=== PATIENT | female | born 1965 | race Caucasian/White ===

== ENCOUNTER → 2018-08-14 06:25 | Outpatient (CLI) | payer OTHER, SELFPAY ==
--- NOTE | 2018-08-14 06:27 | CA_ITS ---
PROCEDURE: 2-D M-mode and color Doppler study INDICATIONS FOR THE TEST: Chest pain + COPD Heart Murmur Tobacco Smoking+ Palpitations Fatigue Syncope Edema+ Hypertension Diabetes Mellitus Rheumatic Fever SOB ZAMUDIO Obesity Hyperlipidemia+ Family History HD+ Additional History PATIENT INFORMATION HEIGHT: 61 WEIGHT:161 GENDER: Female B/P:143/75 2-D/M-MODE INTERPRETATION: 2-D MEASUREMENTS OBSERVED VALUES IN CMS Right Ventricular Dimension (RVDd) 2.1 Interventricular Septum (Thickness)(IVsd) 1.0 Left Ventricular Internal Dimensions(LVIDd) 4.8 Left Ventricular Posterior Wall (Thickness)(LVPWd) 0.8 Aortic Root 2.6 Aortic Cusp Separation 1.7 Left Atrial Dimensions (LAD) 3.0 2D 1. Left atrium is normal size, left ventricle is normal size, there is no concentric left ventricular hypertrophy, visually estimated ejection fraction 55% with no regional wall motion abnormality. 2. The right atrium and right ventricle is normal normal size and contractility. 3. The aortic valve is minimally thickened and fibrosed. 4. The mitral and tricuspid valvular grossly normal. 5. The pulmonic valve is poorly visualized. 6. No significant pericardial effusion noted. DOPPLER INTERROGATION: Doppler interrogation of the aortic, mitral and tricuspid valvular presence of mild mitral and tricuspid regurgitation, tricuspid regurgitation jet velocity is inadequate for calculation of the right ventricular systolic pressure, diastolic parameters are within normal range. CONCLUSION: 1. Normal left ventricular size, visually estimated ejection fraction of 55% with no regional wall motion abnormality, diastolic parameters are within normal range. 2. Mild mitral and tricuspid regurgitation 3. No significant pericardial effusion noted.
--- NOTE | 2018-08-14 06:27 | NM_ITS ---
History and Indications: Hyperlipidemia, chronic tobacco use, family history, chest pain, shortness of breath and palpitations Procedure: Patient received a 0.4 mg of intravenous Lexiscan, resting heart rate was 74 bpm resting blood pressure 140/75, with Lexiscan maximum heart rate achieved was 123 bpm which is less than 85% of the maximum predicted heart rate and a blood pressure was 160/84. With Lexiscan patient complained of shortness of breath. Electrocardiogram: Resting electrocardiogram showed sinus rhythm rightward axis, with Lexiscan there is less than 1.[address] segment depression noted from the baseline EKG. The EKG portion of the Lexiscan Myoview is nondiagnostic. Cardiac stress and resting SPECT images: Cardiac stress and resting SPECT images were obtained using technetium 99 Myoview 32.5 mCi stress and 9.7 mCi at rest. Gated SPECT further analysis of segmental wall motion and calculation of the ejection fraction also done. Cardiac stress and rest SPECT images show a fall myocardial activity without segmental perfusion abnormality, computer derived ejection fraction is over 65% with no regional wall motion abnormality, right ventricle is normal size and contractility. Conclusion: 1. The EKG portion of the Lexiscan Myoview is nondiagnostic. 2. No scintigraphic evidence of reversible ischemia seen, computer derived ejection fraction is 65% with no regional wall motion abnormality, right ventricle is normal size and contractility. 3. Normal Lexiscan Myoview study.
--- NOTE | 2018-08-14 11:07 | HMH.ITSHM ---
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 [lipator omeprazole ]
== END ==
PROVIDERS: PCP Physician Assistant; Visit Provider Internal Medicine
DX: R07.9 Chest pain, unspecified (principal); R06.09 Other forms of dyspnea; E78.5 Hyperlipidemia, unspecified; R60.9 Edema, unspecified; R94.31 Abnormal electrocardiogram [ECG] [EKG]; Z82.49 Family history of ischemic heart disease and other diseases of the circulatory system; F17.200 Nicotine dependence, unspecified, uncomplicated
CPT/HCPCS: 78452; 93017; 93306; 94060; 94640; 94726; 94729; A9502; J2785

== ENCOUNTER → 2018-08-18 09:02 | Outpatient (CLI) | payer OTHER, SELFPAY ==
--- NOTE | 2018-08-18 09:05 | XR_ITS ---
XR chest 2V HISTORY: Cough, COPD, asthma, smoker, history of lung cancer ITS.REASON: tobacco dependence ORDERING PHYSICIAN: Luis Alfredo Ragsdale MD PATIENT AGE: 52 years COMPARISON: None FINDINGS: The heart size is unremarkable. There is evidence of old granulomatous disease. No evidence of CHF. There is increased density in the right pericardial region which is felt to be due to a pericardial fat pad. However, there is a transverse density at this area with a fairly sharp margin suggesting an air-fluid level. This Meylan be due to some patient artifact. CT may confirm. The remaining lungs are clear. No acute bony anomalies. IMPRESSION: 1. Questionable air-fluid level versus some aeration artifact in the right pericardial region overlying a pericardial fat pad. CT may be of further value to ensure this does not represent an air-fluid level. This could be performed without contrast 2. Otherwise negative chest
== END ==
PROVIDERS: PCP Physician Assistant; Visit Provider Internal Medicine
DX: F17.200 Nicotine dependence, unspecified, uncomplicated (principal)
CPT/HCPCS: 71046

== ENCOUNTER → 2020-03-07 10:52 | Outpatient (CLI) | payer OTHER, SELFPAY ==
[2020-03-07 11:30] LABS: Basophils # 0.1 K/mm3 (0-0.2); Basophils % 0.8 % (0.1-2.0); Eosinophils # 0.2 K/mm3 (0.0-0.4); Eosinophils % 2.1 % (0.1-12.0); Hematocrit 41.1 % (37.0-47.0); Hemoglobin 14.2 g/dL (12.2-16.2); Lymphocytes # 2.6 K/mm3 (0.7-4.5); Lymphocytes % 30.8 % (10-50); Mean Corpuscular HGB Conc 34.7 g/dL (31.8-35.4); Mean Corpuscular Hemoglobin 29.5 pg (27.0-31.2); Mean Corpuscular Volume 84.9 fl (81-99); Monocytes # 0.4 K/mm3 (0.1-1.0); Monocytes % 4.7 % (1.7-9.3); Neutrophils # 5.1 K/mm3 (1.8-7.8); Neutrophils % 61.6 % (37.0-80.0); Platelet Count 270 K/mm3 (142-424); Red Blood Count 4.83 M/mm3 (4.20-5.40); Red Cell Distribution Width 14.6 % (11.5-17.5); White Blood Count 8.4 K/mm3 (4.8-10.8)
[2020-03-07 12:28] LABS: Chloride 107 mmol/L (98-107); Potassium 5.2 mmoL/L (3.5-5.1); Sodium 140 mmol/L (136-145)
[2020-03-07 12:31] LABS: Blood Urea Nitrogen 12 mg/dl (7-17); Estimated Glomerular Filt Rate 88 ml/min (>60); GFR (African American) 106 ML/MIN (>60)
[2020-03-07 12:32] LABS: Anion Gap 9.2 mEq/L (5-15); Calcium 9.4 mg/dl (8.4-10.2); Carbon Dioxide 29 mmol/L (22.0-30.0); Glucose 91 mg/dl (74-100)
== END ==
PROVIDERS: Visit Provider Urology
DX: E07.9 Disorder of thyroid, unspecified (principal); E87.6 Hypokalemia; I10 Essential (primary) hypertension; R00.2 Palpitations
CPT/HCPCS: 36415; 80048; 85025

== ENCOUNTER → 2020-03-09 12:57 | Outpatient (CLI) | payer OTHER, SELFPAY | PROVIDERS: PCP Physician Assistant; Visit Provider Urology | DX: R00.2 Palpitations (principal); I10 Essential (primary) hypertension; E07.9 Disorder of thyroid, unspecified; E87.6 Hypokalemia | CPT/HCPCS: 93306 ==

== ENCOUNTER → 2020-05-10 15:23 | Outpatient (CLI) | payer OTHER, SELFPAY ==
[2020-05-10 15:42] LABS: Basophils # 0.1 K/mm3 (0-0.2); Eosinophils # 0.3 K/mm3 (0.0-0.4); Eosinophils % 2.8 % (0.1-12.0); Hematocrit 40.1 % (37.0-47.0); Hemoglobin 13.5 g/dL (12.2-16.2); Lymphocytes # 3.1 K/mm3 (0.7-4.5); Lymphocytes % 34.9 % (10-50); Mean Corpuscular HGB Conc 33.7 g/dL (31.8-35.4); Mean Corpuscular Hemoglobin 29.6 pg (27.0-31.2); Mean Corpuscular Volume 87.9 fl (81-99); Monocytes # 0.5 K/mm3 (0.1-1.0); Monocytes % 5.1 % (1.7-9.3); Neutrophils % 56.3 % (37.0-80.0); Platelet Count 276 K/mm3 (142-424); Red Blood Count 4.56 M/mm3 (4.20-5.40); Red Cell Distribution Width 14.7 % (11.5-17.5); White Blood Count 8.9 K/mm3 (4.8-10.8)
[2020-05-10 16:17] LABS: Chloride 106 mmol/L (98-107); Sodium 142 mmol/L (136-145)
[2020-05-10 16:20] LABS: Blood Urea Nitrogen 10 mg/dl (7-17); Calcium 9.5 mg/dl (8.4-10.2); Carbon Dioxide 27 mmol/L (22.0-30.0); Estimated Glomerular Filt Rate 88 ml/min (>60); GFR (African American) 106 ML/MIN (>60); Glucose 113 mg/dl (74-100)
[2020-05-10 16:38] LABS: Free T4 (Free Thyroxine) 0.84 ng/dl (0.78-2.19)
[2020-05-10 16:52] LABS: Thyroid Stimulating Hormone 1.97 uIU/mL (0.465-4.68)
== END ==
PROVIDERS: Visit Provider Physician Assistant
DX: R00.2 Palpitations (principal)
CPT/HCPCS: 36415; 80048; 83735; 84439; 84443; 85025

== ENCOUNTER 2020-05-26 10:41 | Day surgery (SDC) | payer OTHER, SELFPAY ==
[2020-05-26] VITALS (20 sets, daily range): BP systolic 88–162; BP diastolic 58–83; PULSE 69–96; RESP 15–18; TEMP 36.6–36.9; O2SAT 92–99; BMI 22.8; BMI 31.0
--- NOTE | 2020-05-26 | IR_ITS ---
APPROVED REPORT Patient Location: [facility] Operator: JASMEET Sandra RT (R) PROCEDURES Left heart catheterization Left ventriculogram Selective coronary angiogram INDICATION Acute coronary syndrome, Numerous risk factors for coronary disease Informed consent was obtained prior to the procedure. COMPLICATIONS none Estimated Blood Loss: less than 10 mls TECHNIQUE One percent lidocaine used to anesthetize the right anterior aspect of the wrist. The right radial artery was accessed via the Seldinger technique. A 6 Polish sheath was placed in the right radial artery. 2.5 mg of verapamil, 800 mcg of nitroglycerin, 1mg Lidocaine and 5000 U Heparin were given through the arterial sheath. The trap catheter and 6 Polish JL 3 guide catheter were used to perform left heart catheterization, left ventriculogram and selective coronary angiogram. At the end of the procedure the sheath was removed good hemostasis was achieved using Traclet band, patient was transferred to the postop holding area in stable condition. ANGIOGRAPHIC RESULTS The left main artery Normal The left anterior descending artery has proximal 10 to 20% stenoses mid vessel 10 to 20% stenosis The circumflex artery Nondominant yet still large with mild 10 to 20% mid vessel stenosis The right coronary artery Large dominant normal The CLEARY ventriculogram reveals Normal 65% The left ventricular end-diastolic pressure 10 mmHg IMPRESSION Mild mgb-sbba-hninfiwr coronary disease Normal ejection fraction Normal left ventricular end-diastolic pressure PLAN 1. Risk factor modification 2. Evaluation of noncardiac chest pain Electronically signed by : Luis Alfredo Ragsdale, 05/26/2020 12:03:16
--- NOTE | 2020-05-26 10:39 | ECG_ITS ---
APPROVED REPORT Exam: Resting ECG HR:84 bpm ECG Measurements Heart Rate 84 AXES AK 142 P 69 QRSd 78 QRS 32 QT 358 T 21 QTc 423 <Conclusion> Normal sinus rhythm Normal ECG Electronically signed by : Brandon Sanchez, 05/27/2020 07:28:02
--- NOTE | 2020-05-26 10:44 | HMH.EDGENADL ---
ED Disposition Clinical Impression: Palpitations Chest pain Qualifiers: Chest pain type: precordial pain Qualified Code(s): R07.2 - Precordial pain Disposition: Still a Patient Condition on Discharge: Good - Critical Care Critical Care Time: No Attestation: On , the high probability of a clinically significant, sudden or life threatening deterioration of the following system(s) required my full and direct attention, intervention and personal management. The time I documented below is in addition to time spent performing reported procedures but includes the following listed in this critical care notation. Medical Decision Making - Medical Records Medical records reviewed: Yes: I reviewed the patient's medical records. MR Comment: [facility] for palpitations, hypoK with F/U cardio 03/07, 05/10 - cardio notes reviewed - Hung Inquiry Pt receiving controlled substance: No Vital Signs: 05/26/20 10:41 05/26/20 11:02 05/26/20 11:23 Temperature 97.9 F 97.9 F Temperature Source Oral Oral Pulse Rate 80 Pulse Rate [Right Radial] 88 82 Respiratory Rate 17 18 15 Blood Pressure 144/83 H Blood Pressure [Right Arm] 162/82 H 144/83 H Blood Pressure Mean [Right Arm] 108 103 Blood Pressure Source [Right Arm] Automatic Cuff Blood Pressure Position [Right Arm] Sitting 02 Sat by Pulse Oximetry 98 97 Oxygen Delivery Method Room Air Room Air - Lab Data Lab results reviewed: Yes: I reviewed the patient's lab results. Lab Results 05/26/20 10:47: WBC 8.0, RBC 5.05, Hgb 14.9, Hct 44.1, MCV 87.4, MCH 29.6, MCHC 33.8, RDW 14.5, Plt Count 273, MPV 6.9 L, Neut % (Auto) 54.0, Lymph % (Auto) 35.7, Brooks % (Auto) 5.2, Eos % (Auto) 4.2, Baso % (Auto) 0.9, Neut # (Auto) 4.3, Lymph # (Auto) 2.9, Brooks # (Auto) 0.4, Eos # (Auto) 0.3, Baso # (Auto) 0.1 05/26/20 10:47: Sodium 141, Potassium 4.0, Chloride 104, Carbon Dioxide 28, Anion Gap 13.0, BUN 8, Creatinine 0.70, Estimated Creat Clear 109, Estimated GFR 88, Est GFR ( Amer) 106, Glucose 148 H, Calcium 9.6, Magnesium 2.0, Total Bilirubin 0.4, AST 35, ALT 30, Alkaline Phosphatase 80, Troponin I < 0.01, Total Protein 7.5, Albumin 4.1, Globulin 3.4 H, Albumin/Globulin Ratio 1.2 05/26/20 10:47: SARS-CoV-2 IgG Ab (Rapid) Negative, SARS-CoV-2 IgM Ab (Rapid) Negative 05/26/20 10:47: Triglycerides 465 H, Cholesterol 219 H, LDL Cholesterol Direct 85.64 L, HDL Cholesterol 30 L, Cholesterol/HDL Ratio 7.3 H Result diagrams: 05/26/20 10:47 05/26/20 10:47 Orders (Tests/Meds): ED MEDICATIONS Discontinued Medications Generic Name Dose Route Start Last Admin Trade Name Freq PRN Reason Stop Dose Admin Acetaminophen 650 mg 05/26/20 11:24 Acetaminophen 325mg Tab PO 06/25/20 11:23 Q4HP PRN Mild to Moderate Pain Aspirin 324 mg 05/26/20 10:44 05/26/20 10:47 Aspirin 81mg Chewable Tablet PO 05/26/20 10:45 324 mg ONCE ONE Administration Diphenhydramine HCl 50 mg 05/26/20 11:24 05/26/20 11:33 Benadryl 50mg/1ml Vial IV 05/26/20 11:25 50 mg ONCE ONE Administration Fentanyl Citrate 25 mcg 05/26/20 11:24 Fentanyl 100mcg/2ml Vial IV 05/27/20 11:24 Q3MINP PRN Moderate to Severe Pain Fentanyl Citrate 50 mcg 05/26/20 11:24 Fentanyl 100mcg/2ml Vial IV 05/27/20 11:24 Q3MINP PRN Moderate to Severe Pain Fentanyl Citrate 25 mcg 05/26/20 11:24 Fentanyl 250mcg/5ml Vial IV 05/27/20 11:24 Q3MINP PRN Moderate to Severe Pain Fentanyl Citrate 50 mcg 05/26/20 11:24 Fentanyl 250mcg/5ml Vial IV 05/27/20 11:24 Q3MINP PRN Moderate to Severe Pain Fentanyl Citrate 25 mcg 05/26/20 11:31 Fentanyl 250mcg/5ml Vial IV 05/27/20 11:31 Q3MINP PRN Moderate to Severe Pain Fentanyl Citrate 50 mcg 05/26/20 11:31 Fentanyl 250mcg/5ml Vial IV 05/27/20 11:31 Q3MINP PRN Moderate to Severe Pain Fentanyl Citrate 50 mcg 05/26/20 14:38 Fentanyl 250mcg/5ml Vial IV 05/27/20 11:31
[2020-05-26 10:56] LABS: Basophils # 0.1 K/mm3 (0-0.2); Basophils % 0.9 % (0.1-2.0); Eosinophils # 0.3 K/mm3 (0.0-0.4); Eosinophils % 4.2 % (0.1-12.0); Hematocrit 44.1 % (37.0-47.0); Hemoglobin 14.9 g/dL (12.2-16.2); Lymphocytes # 2.9 K/mm3 (0.7-4.5); Lymphocytes % 35.7 % (10-50); Mean Corpuscular HGB Conc 33.8 g/dL (31.8-35.4); Mean Corpuscular Hemoglobin 29.6 pg (27.0-31.2); Mean Corpuscular Volume 87.4 fl (81-99); Mean Platelet Volume 6.9 fl (7.4-10.4); Monocytes # 0.4 K/mm3 (0.1-1.0); Monocytes % 5.2 % (1.7-9.3); Neutrophils # 4.3 K/mm3 (1.8-7.8); Platelet Count 273 K/mm3 (142-424); Red Blood Count 5.05 M/mm3 (4.20-5.40); Red Cell Distribution Width 14.5 % (11.5-17.5)
[2020-05-26 11:00] LABS: Chloride 104 mmol/L (98-107); Sodium 141 mmol/L (136-145)
[2020-05-26 11:02] LABS: Alanine Aminotransferase 30 U/L (12-78); Aspartate Amino Transferase 35 U/L (14-36); Blood Urea Nitrogen 8 mg/dl (7-17); Creatinine Clearance Estimated 109 mL/min (50-200); Estimated Glomerular Filt Rate 88 ml/min (>60); GFR (African American) 106 ML/MIN (>60)
[2020-05-26 11:03] LABS: Albumin Level 4.1 g/dl (3.5-5.0); Albumin/Globulin Ratio 1.2 (1.1-1.8); Alkaline Phosphatase 80 U/L (38-126); Bilirubin,Total 0.4 mg/dl (0.2-1.3); Calcium 9.6 mg/dl (8.4-10.2); Carbon Dioxide 28 mmol/L (22.0-30.0); Globulin 3.4 g/dL (1.3-3.2); Glucose 148 mg/dl (74-100); Total Protein,Serum 7.5 g/dl (6.3-8.2)
--- NOTE | 2020-05-26 11:12 | PC.NURSE ---
dave in with pt, pt to go to analytical lab analyst
--- NOTE | 2020-05-26 11:12 | HMH.CNCARD ---
History of Present Illness Consult date: 05/26/20 Requesting physician: Get Bojorquez Consult reason: chest pain Chief complaint: chest pain, palpitations Additional Medical History:: 1. History of hypertension A. Echo, 2018, 03/2020, normal EF with mild MR and TR. 2. Hyperlipidemia with xanthelasma 3. Prediabetes 4. Strong family history of coronary artery disease in 2 brothers 5. Tobacco use, continued 6. Chest pain and palpitations A. Lexiscan Myoview, no ischemia, 2018 7. GERD, on PPI History of present illness: Complains of chest pressure and a feeling of tachycardia that began last night. She says she was eventually able to go to sleep last night but when she awoke this morning the symptoms were there again. She says that the sensation of tachycardia comes and goes and she can feel her heartbeat in her throat. She says the chest pressure accompanies it. She says on the way here her symptoms resolved and she no longer has chest pressure or sensation of tachycardia. She says that the discomfort was radiating into her neck. Symptoms are associated with nausea, diaphoresis, and shortness of breath. She has been having episodes like this since around February. She was initially seen at [facility] emergency room and has been following up with cardiology here since then. She says she gets the symptoms a couple of times a week, but the symptoms seem to be worse since last night, so she decided to come to the emergency room. She says she has been told that she has extra beats of her heart. She does not have known coronary artery disease. She has had prior stress test. She has not had a heart cath. She says her brother is currently in the hospital getting open heart surgery, so she has a family history of heart disease. She is a smoker. She says she is prediabetic. She has hyperlipidemia. The above per Dr. Bojorquez Ms. June is in the ER at this time lying in bed and comfortable. She denies any chest pain at this time but states last evening and this a.m. the symptoms included chest discomfort nausea and diaphoresis. Recent addition of metoprolol did not seem to help the symptoms. She states taking 3 baby aspirin sometimes helps. Patient relates to fractures of her ankle earlier this year for which she is still healing. EKG in the ER today is sinus rhythm with no acute abnormalities or arrhythmias. Initial troponin is normal. [facility] History Medical History: Reports:: Chronic Obstructive Pulmonary Disease (COPD), Gastroesophageal Reflux Disease(GERD) Denies:: Diabetes Mellitus Type 1, Diabetes Mellitus Type 2 *Have you ever received a pneumonia vaccine?: No *Have you received a flu vaccine this season?: No Other Surgeries: Yes: Cholecystectomy, Tubal Ligation - *Social History Smoking Status: Current every day smoker # Packs/Day (cigarettes): 1 Alcohol Intake: never Substance Use Type: denies use *Occupational Status:: unemployed *Travel in the last 8 weeks: None Family Hx:: Coronary Artery Disease, Heart Attack Meds Home Medications Medication Instructions Recorded Confirmed Type mometasone-formoterol HFA 100 2 puff INHALATION BID 07/29/18 08/18/18 History mcg-5 mcg/actuation aerosol inhaler omeprazole 20 mg capsule,delayed 20 mg PO DAILY 07/29/18 08/18/18 History release metoprolol tartrate 25 mg tablet 25 mg PO DAILY #90 tab 05/10/20 05/10/20 Rx potassium chloride 20 mEq 20 meq PO DAILY PRN tab 05/10/20 History tablet,extended release pravastatin 10 mg tablet 10 mg PO DAILY tab 05/10/20 05/10/20 History Allergies Allergy/AdvReac Type Severity Reaction Status Date / Time codeine [CODEINE] Allergy Unknown CHEST PAIN Verified 05/26/20 10:44 Exam Vital signs and Labs for Last 24 Hours: Temp Pulse Resp BP Pulse Ox 97.9 F 82 18 144/83 H 97 05/26/20 10:41 05/26/20 11:02 05/26/20 11:02 05/26/20 11:02 05/26/20 11:02 Laboratory Results - last 24 hr 05/26/20 10:47: WBC
[2020-05-26 11:17] LABS: Troponin I < 0.01 ng/ml (0.00-0.034)
--- NOTE | 2020-05-26 11:29 | PC.NURSE ---
dr diaz contacted for admit orders. care management notified of admit for bed placement.
[2020-05-26 11:46] LABS: Coronavirus 19 IgG Antibody Negative (Negative); Coronavirus 19 IgM Antibody Negative (Negative)
--- NOTE | 2020-05-26 14:40 | PC.NURSE ---
pT ARRIVED TO THE FLOOR AT THIS TIME
[2020-05-26 14:57] LABS: Chol/HDL Ratio 7.3 (1-3.5); Cholesterol 219 mg/dl (140-200); HDL Cholesterol 30 mg/dl (40-60)
[2020-05-26 14:58] LABS: Triglycerides 465 mg/dl (30-150)
[2020-05-26 15:08] LABS: Direct LDL Cholesterol 85.64 mg/dL (100-129)
--- NOTE | 2020-05-26 15:57 | PC.NURSE ---
PT IS WANTING TO BE DISCHARGED HOME. CHASE QUINTANILLA FROM CARDIOLOGY CALLED AND STATED PT WAS OKAY TO GO HOME WITH A 1 WEEK FOLLOW UP APPOINTMENT. NOTIFIED TO ASK IF HE WOULD BE OKAY WITH DISCHARGING PT.
--- NOTE | 2020-05-26 16:54 | PC.NURSE ---
A&OX4. PT HAS TOLERATED ROOM AIR WELL THROUGHOUT SHIFT. RESPIRATIONS REGULAR AND UNLABORED. LUNG SOUNDS BILATERALLY CLEAR. NO COUGH NOTED. ACTIVE BOWEL SOUNDS HEARD IN ALL 4 QUADRANTS. SOFT AND NONTENDER ABDOMEN. NO BM THUS FAR. PT VOIDS PER TOILET INDEPENDENTLY. NO EDEMA NOTED. HAND MOTORS AND CONTROLS TESTER EQUAL. PT HAS REMAINED ON TELE THROUGHOUT SHIFT. NO COMPLAINTS OF CHEST PAIN, SOB, OR ANY OTHER PAIN THUS FAR. DRESSING NOTED TO R WRIST R/T CARDIAC CATH SITE. CDI. PT IS CURRENTLY LYING IN BED W CALL LIGHT WITHIN REACH. BED IN LOWEST POSITION. VSS. WILL CONTINUE TO MONITOR.
== END 2020-05-26 17:15 | disposition home or self-care (01) ==
LOC: ER 11:14 → CATHLAB 11:27 → 2ND 11:36
PROVIDERS: Physician Assistant; Emergency Provider Emergency Medicine; Visit Provider Internal Medicine
DX: I25.10 Atherosclerotic heart disease of native coronary artery without angina pectoris (principal); Z72.0 Tobacco use; E78.5 Hyperlipidemia, unspecified; Z82.49 Family history of ischemic heart disease and other diseases of the circulatory system; Z79.899 Other long term (current) drug therapy; J44.9 Chronic obstructive pulmonary disease, unspecified
CPT/HCPCS: 80053; 80061; 83735; 84484; 85025; 86328; 93005; 93458; 99152; 99284; C1725; C1769; G0378; J1644; Q9967

== ENCOUNTER 2020-06-21 10:23 | Emergency (ER) | payer OTHER, SELFPAY ==
[2020-06-21 10:37] VITALS: BP 126/88; PULSE 81; RESP 19; TEMP 37; O2SAT 98; BMI 30.6
--- NOTE | 2020-06-21 10:44 | HMH.EDUTC ---
[facility] [place] Disposition Clinical Impression: Viral upper respiratory infection Disposition: Home, Self-Care Condition on Discharge: Good Instructions: Preventing the Spread of Coronavirus Discharge Instructions, DI for Viral Upper Respiratory Infection -- Adult, Diarrhea Additional Instructions: *Monitor Temp, Over the counter Motrin or Tylenol as directed/as needed Tylenol every 4 hours and Motrin every 6 hours (as long as your family doctor has told you that you can take it) for fever or pain. and straight to ER if unable to lower temp less than 101.0 after medication given *Warm salt water gargles may help to soothe the throat *Throat Lozenges *Warm fluids like tea with honey may help to soothe the throat *Sleep elevated *Humidifier/Vaporizer *Flonase as prescribed spray in each nostril daily but be aware that it may take 2-3 days before you notice improvement Follow up IMMEDIATELY for new or worsening symptoms or no Noticeable improvement over the next 48-72 hours. 911 for difficulty breathing or swallowing You was tested for today for COVID19 your test result should be back later this evening, you may call back later this evening to see if your test results are back and the result You was given a handout with instructions for Self Quarantine and Self isolation for while you wait on test results and what to do if they are positive ? Avoid fruit juices, as these do not replace minerals and can actually increase diarrhea. ? Children and adults can use sports drinks to replenish electrolytes. Younger children and infants should use products formulated for children, like oral rehydration solutions. ? Eat food in small amounts and let your stomach recover. ? Get lots of rest. You may feel tired or weak. ? No greasy or fried foods for the next 24-48 hours BRAT diet Bananas Rice Apples and [place] ? Make sure to drink plenty of liquids ? Return if needed ? Straight to ER if any life threatening symptoms ? Follow up with family doctor in the next 48-72 hours if no improvement or any worsening of symptoms Prescriptions: Ondansetron [Zofran 4mg ODT] 4 mg PO TIDP PRN #10 tab PRN Reason: Nausea Transmission Status: Pending to [employer] #[id number] Referrals: Mayra Cunningham PA [Primary Care Provider] - As needed Time of Disposition: 10:51 Medical Decision Making - Hung Inquiry Pt receiving controlled substance: No Hung was queried for this patient: No Vital Signs: 06/21/20 10:37 Temperature 98.6 F Temperature Source Oral Pulse Rate [Right Brachial] 81 Respiratory Rate 19 Blood Pressure [Right Arm] 126/88 Blood Pressure Mean [Right Arm] 100 Blood Pressure Source [Right Arm] Automatic Cuff Blood Pressure Position [Right Arm] Sitting 02 Sat by Pulse Oximetry 98 Oxygen Delivery Method Room Air [facility] [place] HPI - General Stated complaint: cold symptoms Time Seen by Provider: 06/21/20 10:44 Mode of Arrival: Ambulatory Source of Information: Patient Limitations: No Limitations Description of Symptoms (Recalled from Triage Doc. by RN): PATIENT C/O DIARRHEA, HEADACHE, AND SINUS DRAINAGE X 1 WEEK HEENT Symptoms (Recalled from RN notes): Yes Resp Symptoms (Recalled from RN notes): No Skin Symptoms (Recalled from RN notes): No MS Symptoms (Recalled from RN notes): No Functional Status (Recalled from RN notes): WNL - History of Present Illness Provider Complaint: Patient states that she has had clear sinus drainage for about a week, headache on and off and had diarrhea yesterday but not had any since about noon yesterday and has been having some nausae but no vomiting. States that she loss her sense of taste a couple days ago States that she thought that may have been from the drainage but still has not returned States that elderly mother is having similar symptoms and she is concerned she may have COVID - Related Data Home Medications Medication Instructions Recorded Confirmed mometasone-formoterol HFA 100 2 puff IN
[2020-06-21 10:58] VITALS: BP 126/88; PULSE 81; RESP 19; TEMP 37; O2SAT 98
== END 2020-06-21 11:00 | disposition home or self-care (01) ==
PROVIDERS: Emergency Provider Nurse Practitioner; PCP Physician Assistant
DX: U07.1 COVID-19 (principal); J44.9 Chronic obstructive pulmonary disease, unspecified; K21.9 Gastro-esophageal reflux disease without esophagitis; E78.5 Hyperlipidemia, unspecified; I10 Essential (primary) hypertension; F17.210 Nicotine dependence, cigarettes, uncomplicated; Z88.2 Allergy status to sulfonamides; Z88.5 Allergy status to narcotic agent
CPT/HCPCS: 99201; U0003

== ENCOUNTER 2020-08-06 16:05 | Emergency (ER) | payer OTHER, SELFPAY ==
[2020-08-06 16:06] VITALS: BP 141/78; PULSE 96; RESP 19; TEMP 37.1; O2SAT 97; BMI 31.4
[2020-08-06 16:09] VITALS: BMI 31.4
--- NOTE | 2020-08-06 16:09 | XR_ITS ---
PROCEDURE: XR CHEST 2V Referring Doctor: Tyron Garvey Patient Age:54Y CLINICAL HISTORY: Chest pain Elevated WBC count COMPARISON: . CT [facility] CT CHEST W/O CONTRAST from 12/07/2016 CR CXR2V XR chest 2V from 08/18/2018 FINDINGS: PA and lateral chest performed today upright-and compared to 10/21 CXR but no significant appearing new findings. Slight coarsening markings towards lung bases particularly right infrahilar region was seen previously and appears to be a stable feature. Minimal linear density towards the left base which I believe reflects some minimal scarring and or atelectasis but no significant acute findings. The heart is normal in size. The hayder and mediastinal structures appear similar and stable but No pleural effusion but no pneumothorax. No CHF or vascular congestion. The ribs, chest wall and T-spine appear stable previous cholecystectomy clips noted RUQ. IMPRESSION: No significant acute findings. Mild chronic changes, basically stable chest Dictated by: Vishal Nguyen MD 08/06/2020 17:30 Vishal Nguyen MD in [place] 08/06/2020 17:30
--- NOTE | 2020-08-06 16:10 | ECG_ITS ---
APPROVED REPORT Exam: Resting ECG HR:106 bpm ECG Measurements Heart Rate 106 AXES AK 132 P 77 QRSd 76 QRS 33 QT 324 T 35 QTc 430 Conclusion Sinus tachycardia with occasional premature ventricular complexes Anterior infarct, age undetermined Abnormal ECG Electronically signed by : Brandon Sanchez, 08/08/2020 07:24:36
[2020-08-06 16:16] LABS: Basophils # 0.1 K/mm3 (0-0.2); Basophils % 0.5 % (0.1-2.0); Eosinophils # 0.1 K/mm3 (0.0-0.4); Hematocrit 45.5 % (37.0-47.0); Hemoglobin 15.3 g/dL (12.2-16.2); Lymphocytes # 3.2 K/mm3 (0.7-4.5); Lymphocytes % 22.4 % (10-50); Mean Corpuscular HGB Conc 33.7 g/dL (31.8-35.4); Mean Corpuscular Hemoglobin 28.9 pg (27.0-31.2); Mean Corpuscular Volume 85.6 fl (81-99); Monocytes # 0.5 K/mm3 (0.1-1.0); Monocytes % 3.7 % (1.7-9.3); Neutrophils # 10.4 K/mm3 (1.8-7.8); Neutrophils % 72.4 % (37.0-80.0); Platelet Count 336 K/mm3 (142-424); Red Blood Count 5.31 M/mm3 (4.20-5.40); Red Cell Distribution Width 15.1 % (11.5-17.5); White Blood Count 14.4 K/mm3 (4.8-10.8)
[2020-08-06 16:19] LABS: Chloride 102 mmol/L (98-107)
[2020-08-06 16:20] LABS: Potassium 4.2 mmoL/L (3.5-5.1); Sodium 138 mmol/L (136-145)
[2020-08-06 16:23] LABS: Anion Gap 12.2 mEq/L (5-15); Blood Urea Nitrogen 13 mg/dl (7-17); Calcium 10.1 mg/dl (8.4-10.2); Carbon Dioxide 28 mmol/L (22.0-30.0); Creatinine Clearance Estimated 110 mL/min (50-200); Estimated Glomerular Filt Rate 88 ml/min (>60); GFR (African American) 106 ML/MIN (>60); Glucose 114 mg/dl (74-100)
[2020-08-06 16:45] LABS: Troponin I < 0.01 ng/ml (0.00-0.034)
--- NOTE | 2020-08-06 16:45 | HMH.EDCP ---
ED Disposition Clinical Impression: Atypical chest pain Disposition: Home, Self-Care Condition on Discharge: Good Additional Instructions: F/U w/ PCP for further outpt cardiac workup Referrals: Mayra Cunningham PA [Primary Care Provider] - - Critical Care Critical Care Time: No Attestation: On 08/06/20, the high probability of a clinically significant, sudden or life threatening deterioration of the following system(s) required my full and direct attention, intervention and personal management. The time I documented below is in addition to time spent performing reported procedures but includes the following listed in this critical care notation. Medical Decision Making - Hung Inquiry Pt receiving controlled substance: No Vital Signs: 08/06/20 16:06 08/06/20 16:51 08/06/20 17:49 Temperature 98.7 F Temperature Source Oral Pulse Rate [Left Radial] 96 H 96 H 86 Respiratory Rate 19 Blood Pressure [Right Arm] 141/78 H 141/78 H 140/67 Blood Pressure Mean [Right Arm] 99 99 91 Blood Pressure Source [Right Arm] Automatic Cuff Automatic Cuff Automatic Cuff Blood Pressure Position [Right Arm] Sitting Sitting Sitting 02 Sat by Pulse Oximetry 97 96 95 Oxygen Delivery Method Room Air Room Air Room Air 08/06/20 19:13 Temperature Temperature Source Pulse Rate [Left Radial] 89 Respiratory Rate Blood Pressure [Right Arm] 124/59 L Blood Pressure Mean [Right Arm] 80 Blood Pressure Source [Right Arm] Automatic Cuff Blood Pressure Position [Right Arm] Sitting 02 Sat by Pulse Oximetry 94 L Oxygen Delivery Method Room Air - Lab Data Lab results reviewed: Yes: I reviewed the patient's lab results. Lab Results 08/06/20 16:07: WBC 14.4 H, RBC 5.31, Hgb 15.3, Hct 45.5, MCV 85.6, MCH 28.9, MCHC 33.7, RDW 15.1, Plt Count 336, MPV 7.0 L, Neut % (Auto) 72.4, Lymph % (Auto) 22.4, [place] % (Auto) 3.7, Eos % (Auto) 1.0, Baso % (Auto) 0.5, Neut # (Auto) 10.4 H, Lymph # (Auto) 3.2, [place] # (Auto) 0.5, Eos # (Auto) 0.1, Baso # (Auto) 0.1 08/06/20 16:07: Sodium 138, Potassium 4.2, Chloride 102, Carbon Dioxide 28, Anion Gap 12.2, BUN 13, Creatinine 0.70, Estimated Creat Clear 110, Estimated GFR 88, Est GFR ( Amer) 106, Glucose 114 H, Calcium 10.1, Troponin I < 0.01 08/06/20 18:40: Troponin I < 0.01 Result diagrams: 08/06/20 16:07 08/06/20 16:07 Orders (Tests/Meds): ED MEDICATIONS Discontinued Medications Generic Name Dose Route Start Last Admin Trade Name Michael PRN Reason Stop Dose Admin Aspirin 243 mg 08/06/20 16:10 Aspirin 81mg Chewable Tablet PO 08/06/20 16:11 ONCE ONE ORDERS Category Date Time Status Troponin I Q3H Lab 08/06/20 22:15 Ordered - Radiology Data #1 Image(s): Chest Image Reviewed: Yes I reviewed the patient's radiology image Preliminary Findings: Normal/NAD - ECG Data Tracing #1 ECG initial impression date: 08/06/20 ECG initial impression time: 16:35 Arrhythmias present: sinus tach (VR-106bpm) Chest Pain HPI - General Chief Complaint: Chest Pain Stated Complaint: chest pain Time Seen by Provider: 08/06/20 16:30 Mode of Arrival: Ambulatory Limitations: No Limitations Description of Symptoms (Recalled from ER Triage Doc. by RN): c/o chest pain that started last night and went away when she laid down. States it started back when she got up moving the pain came back. She points to pain on her right chest area when asked where her pain is - History of Present Illness HPI narrative: This is a 54-year-old female that presents with chest pain which began approximately 6 to 8 hours prior to arrival when she awoke this morning. Pain is intermittent and sharp. Timing is variable. Currently patient is having no pain. She denies any diaphoresis, nausea or vomiting, or shortness of breath with her symptoms. No modifying symptoms. - Related Data Home Medications Medication Instructions Recorded Confirmed mometasone-formoterol HFA 100
[2020-08-06 16:51] VITALS: BP 141/78; PULSE 96; O2SAT 96
[2020-08-06 17:49] VITALS: BP 140/67; PULSE 86; O2SAT 95
[2020-08-06 19:13] VITALS: BP 124/59; PULSE 89; O2SAT 94
[2020-08-06 19:28] LABS: Troponin I < 0.01 ng/ml (0.00-0.034)
[2020-08-06 20:10] VITALS: BP 136/72; PULSE 88; RESP 16; TEMP 37.1; O2SAT 96
== END 2020-08-06 20:12 | disposition home or self-care (01) ==
PROVIDERS: Emergency Provider Emergency Medicine; PCP Physician Assistant
DX: R07.89 Other chest pain (principal); J44.9 Chronic obstructive pulmonary disease, unspecified; K21.9 Gastro-esophageal reflux disease without esophagitis; E78.5 Hyperlipidemia, unspecified; I10 Essential (primary) hypertension; F17.210 Nicotine dependence, cigarettes, uncomplicated; Z79.899 Other long term (current) drug therapy
CPT/HCPCS: 36415; 71046; 80048; 84484; 85025; 93005; 99283

== ENCOUNTER → 2020-08-23 13:46 | Outpatient (CLI) | payer OTHER, SELFPAY | PROVIDERS: PCP Physician Assistant; Visit Provider Urology | DX: R00.2 Palpitations (principal) | CPT/HCPCS: 93270 ==

== ENCOUNTER → 2020-11-07 10:57 | Outpatient (CLI) | payer OTHER, SELFPAY ==
[2020-11-07 12:15] VITALS: PULSE 84; PULSE 88
== END ==
PROVIDERS: PCP Physician Assistant; Visit Provider Internal Medicine Pulmonary Disease
DX: R06.00 Dyspnea, unspecified (principal)
CPT/HCPCS: 94060; 94618; 94640; 94726; 94729

== ENCOUNTER → 2020-12-12 07:52 | Outpatient (CLI) | payer OTHER, SELFPAY ==
--- NOTE | 2020-12-12 07:56 | CA_ITS ---
APPROVED REPORT [employer]: CT Laterality: Bilateral Indications: dizziness, bruit Risk Factors Smoking Doppler Spectral Velocity Analysis ECA (R) 96.60/ cm/s ECA (L) 111.00/ cm/s dICA (R) 86.40/41.60 cm/s dICA (L) 74.60/35.80 cm/s [place] (R) 91.10/36.90 cm/s [place] (L) 77.40/31.00 cm/s pICA (R) 80.10/33.00 cm/s pICA (L) 55.90/21.40 cm/s dCCA (R) 68.80/22.00 cm/s dCCA (L) 92.70/31.40 cm/s pCCA (R) 75.40/27.50 cm/s pCCA (L) 99.80/29.10 cm/s Vert (R) 53.80/ cm/s Vert (L) 60.50/ cm/s ICA/CCA 1.32 ICA/CCA 0.83 Findings Duplex evaluation demonstrates stenosis of the right proximal internal carotid artery <20% with PSV <140 cm/sec, EDV <100 cm/sec, and IC/CC Ratio <4.0. Duplex evaluation demonstrates stenosis of the left proximal internal carotid artery <20% with PSV <140 cm/sec, EDV <100 cm/sec, and IC/CC Ratio <4.0. Duplex evaluation demonstrates antegrade flow of the bilateral Vertebral Arteries. Conclusion Duplex evaluation demonstrates stenosis of the right proximal internal carotid artery <20% with PSV <140 cm/sec, EDV <100 cm/sec, and IC/CC Ratio <4.0. Duplex evaluation demonstrates stenosis of the left proximal internal carotid artery <20% with PSV <140 cm/sec, EDV <100 cm/sec, and IC/CC Ratio <4.0. Duplex evaluation demonstrates antegrade flow of the bilateral Vertebral Arteries. Electronically signed by : Allan Enciso MD 12/12/2020 16:00:21
== END ==
PROVIDERS: PCP Physician Assistant; Visit Provider Nurse Practitioner Family
DX: E78.2 Mixed hyperlipidemia (principal); F17.200 Nicotine dependence, unspecified, uncomplicated; E11.69 Type 2 diabetes mellitus with other specified complication; I25.10 Atherosclerotic heart disease of native coronary artery without angina pectoris; R42 Dizziness and giddiness
CPT/HCPCS: 93880

== ENCOUNTER → 2021-01-25 09:25 | Outpatient (CLI) | payer OTHER, SELFPAY ==
[2021-01-25 11:05] LABS: Alanine Aminotransferase 20 U/L (12-78); Albumin Level 4.4 g/dl (3.5-5.0); Alkaline Phosphatase 83 U/L (38-126); Aspartate Amino Transferase 29 U/L (14-36); Bilirubin,Direct 0.3 mg/dl (0.0-0.4); Bilirubin,Indirect 0.1 mg/dL (0.0-0.9); Bilirubin,Total 0.4 mg/dl (0.2-1.3); Bilirubin,Unconjugated 0.1 mg/dL (0.0-1.1); Cholesterol 249 mg/dl (140-200); Total Protein,Serum 7.2 g/dl (6.3-8.2)
[2021-01-25 11:06] LABS: Chol/HDL Ratio 7.8 (1-3.5); HDL Cholesterol 32 mg/dl (40-60)
[2021-01-25 11:12] LABS: Triglycerides 405 mg/dl (30-150)
[2021-01-25 11:17] LABS: Direct LDL Cholesterol 137.19 mg/dL (100-129)
== END ==
PROVIDERS: Visit Provider Urology
DX: E78.2 Mixed hyperlipidemia (principal); R00.2 Palpitations; I25.10 Atherosclerotic heart disease of native coronary artery without angina pectoris; E11.69 Type 2 diabetes mellitus with other specified complication; F17.200 Nicotine dependence, unspecified, uncomplicated; Z82.49 Family history of ischemic heart disease and other diseases of the circulatory system
CPT/HCPCS: 36415; 80061; 80076

== ENCOUNTER → 2021-02-01 13:13 | Outpatient (CLI) | payer OTHER, SELFPAY ==
--- NOTE | 2021-02-01 13:14 | US_ITS ---
APPROVED REPORT Exam Type: Ankle to Brachial Index Ict Support Technicians: Kelly Olivas RVT Indications Claudication: Rest Pain: Current Smoker Risk Factors Hypertension Hyperlipidemia Current Smoker History of Smoking Pressures/Indices Right Indices Left Indices Brachial 124.00 mmHg Brachial 135.00 mmHg Low Thigh 154.00 mmHg 1.14 Low Thigh 157.00 mmHg 1.16 Calf 168.00 mmHg 1.24 Calf 178.00 mmHg 1.32 Ankle(PT) 176.00 mmHg 1.30 Ankle(PT) 180.00 mmHg 1.33 Ankle(DP) 165.00 mmHg 1.22 Ankle(DP) 185.00 mmHg 1.37 Digit 112.00 mmHg 0.83 Digit 118.00 mmHg 0.87 Findings RT CYNTHIA=1.3 LT CYNTHIA=1.3 RT TPI=0.83 LT TPI=0.87 Conclusion RT CYNTHIA=1.3 LT CYNTHIA=1.3 RT TPI=0.83 LT TPI=0.87 Normal appearing resting noninvasive lower extremity arterial study. Electronically signed by : Allan Enciso MD 02/01/2021 16:18:25
== END ==
PROVIDERS: PCP Physician Assistant; Visit Provider Urology
DX: I73.9 Peripheral vascular disease, unspecified (principal)
CPT/HCPCS: 93923

== ENCOUNTER → 2021-04-06 10:06 | Outpatient (CLI) | payer OTHER, SELFPAY | PROVIDERS: PCP Family Medicine; Visit Provider Specialist | DX: G47.33 Obstructive sleep apnea (adult) (pediatric) (principal) | CPT/HCPCS: 95806 ==

== ENCOUNTER → 2021-04-14 13:03 | Outpatient (CLI) | payer OTHER, SELFPAY ==
--- NOTE | 2021-04-14 13:04 | MR_ITS ---
PROCEDURE: MR ANGIO HEAD WO CON CLINICAL INDICATION: headache, abnormal mri Pt complains of pressure behind eyes. No prior. COMPARISON: No exams were available for comparison TECHNIQUE: 3D [id number] images obtained with multi slab reformats. The study is performed without contrast. FINDINGS: No aneurysm, AVM, major vascular occlusion, or arterial dissection apparent. IMPRESSION: Negative MRA of the brain Dictated by: Allan Enciso MD 04/20/2021 10:57 Allan Enciso MD in [place] 04/20/2021 10:57
== END ==
PROVIDERS: PCP Family Medicine; Visit Provider Specialist
DX: R51.9 Headache, unspecified (principal); H53.9 Unspecified visual disturbance; G93.2 Benign intracranial hypertension
CPT/HCPCS: 70544

== ENCOUNTER → 2021-04-21 09:26 | Outpatient (CLI) | payer OTHER, SELFPAY ==
[2021-04-21 11:53] LABS: Alanine Aminotransferase 18 U/L (12-78); Albumin Level 4.3 g/dl (3.5-5.0); Albumin/Globulin Ratio 1.5 (1.1-1.8); Alkaline Phosphatase 74 U/L (38-126); Anion Gap 12.7 mEq/L (5-15); Aspartate Amino Transferase 24 U/L (14-36); Bilirubin,Total 0.4 mg/dl (0.2-1.3); Blood Urea Nitrogen 10 mg/dl (7-17); Calcium 9.4 mg/dl (8.4-10.2); Carbon Dioxide 28 mmol/L (22.0-30.0); Chloride 104 mmol/L (98-107); Estimated Glomerular Filt Rate 87 ml/min (>60); GFR (African American) 106 ML/MIN (>60); Globulin 2.8 g/dL (1.3-3.2); Glucose 109 mg/dl (74-100); Potassium 4.7 mmoL/L (3.5-5.1); Sodium 140 mmol/L (136-145); Total Protein,Serum 7.1 g/dl (6.3-8.2)
[2021-04-21 14:42] LABS: Vitamin B12 401 pg/mL (239-931)
[2021-04-21 14:47] LABS: Folate 5.84 ng/mL
== END ==
PROVIDERS: Visit Provider Specialist
DX: R51.9 Headache, unspecified (principal); H53.9 Unspecified visual disturbance; R90.89 Other abnormal findings on diagnostic imaging of central nervous system; G93.2 Benign intracranial hypertension; G47.30 Sleep apnea, unspecified
CPT/HCPCS: 36415; 80053; 82607; 82746

== ENCOUNTER 2022-01-15 09:55 | Emergency (ER) | payer OTHER, SELFPAY ==
[2022-01-15 10:20] VITALS: BP 161/87; PULSE 82; RESP 19; TEMP 36.7; O2SAT 98; BMI 23.8
[2022-01-15 10:36] LABS: Apearance,Urine Clear (Clear); Color,Urine Yellow (Yellow); Protein,Urine Negative (Negative); Specific Gravity, Urine 1.005 (1.005-1.030)
[2022-01-15 10:37] LABS: Bilirubin,Urine Negative (Negative); Blood, Urine Trace (Negative); Glucose,Urine (UA) Negative (Negative); Ketones,Urine Negative (Negative); UTC Leukocyte Esterase,Urine Negative (Negative); UTC Nitrate,Urine Negative (Negative); Urobilinogen,Urine 0.2 EU/dl (0.2)
--- NOTE | 2022-01-15 10:50 | HMH.EDUTC ---
[facility] [place] Disposition Clinical Impression: Diarrhea Qualifiers: Diarrhea type: unspecified type Qualified Code(s): R19.7 - Diarrhea, unspecified Disposition: Home, Self-Care Condition on Discharge: Good Instructions: Diarrhea, DI for Nausea -- Adult, Ondansetron Additional Instructions: Drink extra fluids with and between meals. If you have difficulty drinking, try very small amounts of water or suck on ice chips. ? Avoid fruit juices, as these do not replace minerals and can actually increase diarrhea. ? Children and adults can use sports drinks to replenish electrolytes. Younger children and infants should use products formulated for children, like oral rehydration solutions. ? Eat food in small amounts and let your stomach recover. ? Get lots of rest. You may feel tired or weak. ? No greasy or fried foods for the next 24-48 hours BRAT diet Bananas Rice Apples and Thayne ? Make sure to drink plenty of liquids ? Return if needed ? Straight to ER if any life threatening symptoms ? Zofran as prescribed ? You was given an outpatient order for diarrhea panel, please collect specimen and bring back to outpatient lab then call back to the [facility] or follow up with family doctor for results ? Follow up with family doctor in the next 48-72 hours if no improvement or any worsening of symptoms Prescriptions: Dicyclomine HCl [Bentyl 10mg capsule] 10 mg PO TID PRN #15 cap PRN Reason: Cramping Transmission Status: Pending to [facility] #[id number] Ondansetron [Zofran 4mg ODT] 4 mg PO TIDP PRN #10 tab PRN Reason: Nausea Transmission Status: Pending to [facility] #[id number] Referrals: Provider,Referral, [Primary Care Provider] - As needed Time of Disposition: 11:06 Medical Decision Making - Hung Inquiry Pt receiving controlled substance: No Hung was queried for this patient: No Vital Signs: 01/15/22 10:20 Temperature 98.1 F Temperature Source Oral Pulse Rate [Right Brachial] 82 Respiratory Rate 19 Blood Pressure [Right Arm] 161/87 H Blood Pressure Mean [Right Arm] 111 Blood Pressure Source [Right Arm] Automatic Cuff Blood Pressure Position [Right Arm] Sitting 02 Sat by Pulse Oximetry 98 Oxygen Delivery Method Room Air - Lab Data Lab results reviewed: Yes: I reviewed the patient's lab results. Lab Results 01/15/22 10:32: Urine Color Yellow, Urine Appearance Clear, Urine pH 6.0, Ur Specific [place] 1.005, Urine Protein Negative, Urine Glucose (UA) Negative, Urine Ketones Negative, Urine Blood Trace, Urine Nitrate Negative, Urine Bilirubin Negative, Urine Urobilinogen 0.2, Ur Leukocyte Esterase Negative Medical Decision Narrative: Discussed with patient and recommended transfer to the ED for further work up and CT of abdomen if warranted and patient declined states that she wanted to get her urine and stool checked and she would follow up with her PCP Patient aware of risks and still declined transfer Patient given strict return instructions if pain worsens [facility] [place] HPI - General Stated complaint: diarrhea, pelvic cramps, nausea Time Seen by Provider: 01/15/22 10:51 Mode of Arrival: Ambulatory Source of Information: Patient Limitations: No Limitations Description of Symptoms (Recalled from Triage Doc. by RN): PATIENT C/O LOWER ABDOMINAL PAIN, DIARRHEA, NAUSEA AND WEAKNESS X 1 WEEK HEENT Symptoms (Recalled from RN notes): No Resp Symptoms (Recalled from RN notes): No Skin Symptoms (Recalled from RN notes): No MS Symptoms (Recalled from RN notes): No Functional Status (Recalled from RN notes): WNL - History of Present Illness Provider Complaint: Patient state that she has been having diarrhea, nausea and cramping in her lower abdomen for about a week States that she wasnt sure if she may have a stomach bug or not State that she did this about a year ago and they tested her stool and dx her with an infection States that this morning she was still having cramping, diarrhea and nausea so she came in to see
[2022-01-15 11:12] VITALS: BP 161/87; PULSE 82; RESP 19; TEMP 36.7; O2SAT 98
== END 2022-01-15 11:15 | disposition home or self-care (01) ==
PROVIDERS: Emergency Provider Nurse Practitioner
DX: R19.7 Diarrhea, unspecified (principal); R11.0 Nausea; J44.9 Chronic obstructive pulmonary disease, unspecified; K21.9 Gastro-esophageal reflux disease without esophagitis; I10 Essential (primary) hypertension; E78.5 Hyperlipidemia, unspecified; F17.210 Nicotine dependence, cigarettes, uncomplicated; Z79.899 Other long term (current) drug therapy
CPT/HCPCS: 81003; 99212; G0463

== ENCOUNTER 2022-03-01 11:15 | Emergency (ER) | payer OTHER, SELFPAY ==
[2022-03-01 12:02] VITALS: BP 128/69; PULSE 85; RESP 16; TEMP 37.1; O2SAT 98; BMI 27.9
--- NOTE | 2022-03-01 12:09 | HMH.EDUTC ---
[facility] [place] Clinical Impression: Sinusitis Qualifiers: Sinusitis location: unspecified location Chronicity: acute Recurrence: non-recurrent Qualified Code(s): J01.90 - Acute sinusitis, unspecified Disposition: Home, Self-Care Condition on Discharge: Good Instructions: DI for Sinusitis, Sinusitis Additional Instructions: Drink plenty of fluids. Take tylenol or ibuprofen for pain or fever. Take the medications as directed. Follow up with your regular doctor. GO TO THE ER FOR ANY WORSENING SYMPTOMS Prescriptions: Benzonatate [Benzonatate 100mg cap] 100 mg PO TIDP PRN #30 cap PRN Reason: Cough Transmission Status: Received by [facility] #[id number] methylPREDNISolone [Medrol] 4 mg PO DIRECTED 6 Days #21 packet Transmission Status: Received by [facility] #[id number] Azithromycin [Z-Francisco J 250mg Tab*] 250 mg PO UD DOSE PK #6 tab Transmission Status: Received by [facility] #[id number] Referrals: Provider,Referral, MD [Primary Care Provider] - Time of Disposition: 12:22 Medical Decision Making - Medical Records Medical records reviewed: No: I reviewed the patient's medical records. - Hung Inquiry Pt receiving controlled substance: No Vital Signs: 03/01/22 12:02 03/01/22 12:23 Temperature 98.7 F 98.7 F Temperature Source Oral Pulse Rate 85 Pulse Rate [Left Radial] 85 Respiratory Rate 16 16 Blood Pressure 128/69 Blood Pressure [Right Arm] 128/69 Blood Pressure Mean [Right Arm] 88 02 Sat by Pulse Oximetry 98 [facility] [place] - General Stated complaint: head congestion, fever Time Seen by Provider: 03/01/22 12:09 Description of Symptoms (Recalled from Triage Doc. by RN): patient comes in with complaints of sinus congestion. patient took an at home covid test that was negative. symptoms have been going on for 5 days HEENT Symptoms (Recalled from RN notes): Yes Resp Symptoms (Recalled from RN notes): No Skin Symptoms (Recalled from RN notes): No MS Symptoms (Recalled from RN notes): No Functional Status (Recalled from RN notes): wnl - History of Present Illness Provider Complaint: She states that for the past 5 days she has had worsening sinus congestion and sinus drainage. - Related Data Home Medications Medication Instructions Recorded Confirmed pantoprazole 40 mg tablet,delayed 40 mg PO DAILY tab 08/23/20 04/27/21 release omeprazole 20 mg capsule,delayed 20 mg PO DAILY 04/06/21 04/27/21 release Previous Rx's Medication Instructions Recorded albuterol sulfate 90 mcg/actuation 1 inh INHALATION QID PRN #8.5 g 11/18/20 aerosol inhaler azelastine 137 mcg (0.1 %) nasal 1 spray INTRANASAL BID #30 ml 11/18/20 spray aerosol fluticasone propionate 50 1 spray INTRANASAL DAILY #16 g 11/18/20 mcg/actuation nasal spray,suspension loratadine 10 mg disintegrating 10 mg PO DAILY PRN #30 tab 11/18/20 tablet bisoprolol fumarate 5 mg tablet 5 mg PO DAILY #30 tab 12/05/20 Dicyclomine HCl [Bentyl 10mg 10 mg PO TID PRN #15 cap 01/15/22 capsule] Ondansetron [Zofran 4mg ODT] 4 mg PO TIDP PRN #10 tab 01/15/22 peg 3350-electrolytes 236 240 ml PO Q10M #4000 ml 02/02/22 gram-22.74 gram-6.74 gram-5.86 gram solution Azithromycin [Z-Francisco J 250mg Tab*] 250 mg PO UD DOSE PK #6 tab 03/01/22 Benzonatate [Benzonatate 100mg 100 mg PO TIDP PRN #30 cap 03/01/22 cap] methylPREDNISolone [Medrol] 4 mg PO DIRECTED 6 Days #21 03/01/22 packet Allergies Allergy/AdvReac Type Severity Reaction Status Date / Time rosuvastatin [From Crestor] Allergy Mild Verified 03/01/22 12:05 codeine [CODEINE] Allergy Unknown CHEST PAIN Verified 03/01/22 12:05 cephalexin [From Keflex] Allergy Verified 03/01/22 12:05 sulfamethoxazole Allergy Verified 03/01/22 12:05 [From Bactrim] trimethoprim [From Bactrim] Allergy Verified 03/01/22 12:05 lovastatin AdvReac Intermediate myalgia Verified 03/01/22 12:05 pravastatin AdvReac Intermediate myalgia Verified
[2022-03-01 12:23] VITALS: BP 128/69; PULSE 85; RESP 16; TEMP 37.1
== END 2022-03-01 12:25 | disposition home or self-care (01) ==
LOC: UTC 11:18
PROVIDERS: Emergency Provider Nurse Practitioner Family
DX: J01.90 Acute sinusitis, unspecified (principal)
CPT/HCPCS: 99212; G0463

== ENCOUNTER → 2022-06-01 09:33 | Outpatient (CLI) | payer OTHER, SELFPAY ==
--- NOTE | 2022-06-01 09:33 | US_ITS ---
FINAL REPORT CLINICAL HISTORY: pelvic pain FINDINGS: Transvaginal sonographic images of the pelvis were obtained. The uterus measures 4.5 x 2.7 x 3.7 cm. No mass is identified. The right ovary measures 1.6 x 1.2 x 0.9 cm. The left ovary measures 1.6 x 1.4 x 1.3 cm. The ovaries are within normal limits. No free fluid is seen. IMPRESSION: Unremarkable pelvic ultrasound. Reviewed, Interpreted and Dictated by Stanley Solares MD Transcribed by Tawny Hood Authenticated and [facility]
== END ==
PROVIDERS: PCP Physician Assistant; Visit Provider Obstetrics & Gynecology
DX: R10.2 Pelvic and perineal pain (principal)
CPT/HCPCS: 76830